=== PATIENT | female | born 1950 | race Caucasian/White ===

== ENCOUNTER 2020-07-31 01:07 | Observation (INO) | payer OTHER, BC ==
--- OUTSIDE RECORDS SUMMARY | 2020-07-31 01:09 | XMS REPORT | Continuity of Care Document ---
:1950 Author Organization [facility] t Address [address] [place] [address] Dr. Dickens [address] [place] [id number] Care Team Providers Name Role Phone Leon FELDMAN Attending Clinician Problems This patient has no known problems. Allergies, Adverse Reactions, Alerts This patient has no known allergies or adverse reactions. Medications This patient has no known medications. Procedures This patient has no known procedures. Encounters Start End Encounter Admission Attending Care Care Encounter Source Date/Time Date/Time Type Type Clinicians Facility Department ID 2020-06-18 2020-06-18 Office Christa Quintero [id number] 11:59:05 12:14:05 Visit AMBULATOR [id number] Y [id number] 2019-05-19 2019-05-19 Office Christa Quintero [id number] 12:34:17 12:58:50 Visit AMBULATOR [id number] Y [id number] Results This patient has no known results.
[2020-07-31] MEDS ORDERED: FAMOTIDINE 20 MG/2 ML VIAL IV ONE (02:01)
[2020-07-31] MEDS ORDERED: NA CHLORIDE 0.9% 1,000 ML ONE (02:01)
[2020-07-31] MEDS ORDERED: ONDANSETRON 4 MG/2 ML VIAL ONE ×2 (02:01→03:30)
[2020-07-31] MEDS ORDERED: MECLIZINE HCL 12.5 MG TAB ONE (02:31)
[2020-07-31 02:41] LABS: ALT/SGPT 20 U/L (12-78); AST/SGOT 12 U/L (15-37); Albumin 3.8 g/dL (3.4-5.0); Alkaline Phosphatase 56 U/L (45-117); BUN Blood Urea Nitrogen 11 mg/dL (7-18); Bicarbonate 27 mmol/L (21-32); Bilirubin Direct < 0.1 mg/dL (0-0.2); Bilirubin Total 0.2 mg/dL (0.2-1.0); Glucose Level 138 mg/dL (74-106); Lipase 134 U/L (73-393); NT PRO-BNP 69 pg/mL (<125); Potassium 3.5 mmol/L (3.5-5.1); Protein, Total 7.1 g/dL (6.4-8.2); Sodium Level 141 mmol/L (136-145); Troponin (Emerg Dept Use Only) < 0.02 ng/mL (0.0-0.045)
[2020-07-31 02:45] LABS: Absolute Lymphocytes (CBC) 2.9 K/uL (0.7-4.9); Basophils % 0.7 % (0-1.3); Hematocrit 37.2 % (36.0-45.0); Lymphocytes % 27.5 % (15.3-44.8); MPV 7.7 fL (7.6-11.3); RBC Red Blood Cell Count 4.12 M/uL (3.86-4.86)
[2020-07-31 02:46] LABS: Protime INR 0.97
--- NOTE | 2020-07-31 03:14 | EDPHYS ---
Physician Documentation [facility] Name: Geno Chaparro Age: 69 yrs Sex: Female : 1950 Arrival Date: 07/31/2020 Time: : Bed 5 Private MD: ED Physician Jamie Koehler HPI: 07/31 02:04 This 69 yrs old Female presents to ER via Ambulatory with complaints of sukhwinder Nausea. 02:04 The patient presents to the emergency department with nausea, vomiting, that is sukhwinder intermittent. Onset: The symptoms/episode began/occurred just prior to arrival. Possible causes: unknown. The symptoms are aggravated by nothing. The symptoms are alleviated by nothing. remaining still. Associated signs and symptoms: Pertinent positives: nausea, vomiting. Severity of symptoms: At their worst the symptoms were mild in the emergency department the symptoms have improved mildly. The patient has not experienced similar symptoms in the past. Historical: - Allergies: 01:36 PENICILLINS; rr5 01:36 Sulfa (Sulfonamide Antibiotics); rr5 - Home Meds: 01:36 None [Active]; rr5 - PMHx: 01:36 None; rr5 - PSHx: 01:36 Knee surgery; rr5 - Immunization history:: Adult Immunizations up to date, Client reports receiving the 2nd dose of the Covid vaccine, Date received: May 17, 2020. - Social history:: Smoking status: unknown Patient uses alcohol, occasionally. ROS: 02:05 Constitutional: Negative for fever, chills, and weight loss, Eyes: Negative for injury, sukhwinder pain, redness, and discharge, ENT: Negative for injury, pain, and discharge, Neck: Negative for injury, pain, and swelling, Cardiovascular: Negative for chest pain, palpitations, and edema, Respiratory: Negative for shortness of breath, cough, wheezing, and pleuritic chest pain, Back: Negative for injury and pain, : Negative for injury, bleeding, discharge, and swelling, MS/Extremity: Negative for injury and deformity, Skin: Negative for injury, rash, and discoloration, Neuro: Negative for headache, weakness, numbness, tingling, and seizure, Psych: Negative for depression, anxiety, suicide ideation, homicidal ideation, and hallucinations, Allergy/Immunology: Negative for hives, rash, and allergies, Endocrine: Negative for neck swelling, polydipsia, polyuria, polyphagia, and marked weight changes, Hematologic/Lymphatic: Negative for swollen nodes, abnormal bleeding, and unusual bruising. 02:05 Abdomen/GI: Positive for nausea and vomiting. 02:05 Neuro: Positive for dizziness. Exam: 02:05 Constitutional: This is a well developed, well nourished patient who is awake, alert, sukhwinder and in no acute distress. Head/Face: Normocephalic, atraumatic. Eyes: Pupils equal round and reactive to light, extra-ocular motions intact. Lids and lashes normal. Conjunctiva and sclera are non-icteric and not injected. Cornea within normal limits. Periorbital areas with no swelling, redness, or edema. ENT: Nares patent. No nasal discharge, no septal abnormalities noted. Tympanic membranes are normal and external auditory canals are clear. Oropharynx with no redness, swelling, or masses, exudates, or evidence of obstruction, uvula midline. Mucous membranes moist. Neck: Trachea midline, no thyromegaly or masses palpated, and no cervical lymphadenopathy. Supple, full range of motion without nuchal rigidity, or vertebral point tenderness. No Meningismus. Chest/axilla: Normal chest wall appearance and motion. Nontender with no deformity. No lesions are appreciated. Cardiovascular: Regular rate and rhythm with a normal S1 and S2. No gallops, murmurs, or rubs. Normal PMI, no JVD. No pulse deficits. Respiratory: Lungs have equal breath sounds bilaterally, clear to auscultation and percussion. No rales, rhonchi or wheezes noted. No increased work of breathing, no retractions or nasal flaring. Abdomen/GI: Soft, non-tender, with normal bowel sounds. No distension or tympany. No guarding or rebound. No evidence of tenderness throughout. Back: No spinal tenderness. No costovertebral tenderness. Full range of motion. Female : Normal external genitalia. Skin: Warm, dry with normal turgor. Normal color with no rashes, no lesions, and no evidence of cellulitis. MS/ Extremity: Pulses equal, no cyanosis. Neurovascular intact. Full, normal range of motion. Neuro: Awake and alert, GCS 15, oriented to person, place, time, and situation. Cranial nerves II-XII grossly intact. Motor strength 5/5 in all extremities. Sensory grossly intact. Cerebellar exam normal. Normal gait. Psych: Awake, alert, with orientation to person, place and time. Behavior, mood, and affect are within normal limits. 02:42 ECG was reviewed by the Attending Physician. sukhwinder 03:05 Neck: ROM/movement: is normal, no acute changes, limited range of motion, is not sukhwinder appreciated, Meningeal signs: are not present, Kernig's sign is negative, Brudzinski's sign is negative, Lymph nodes: no appreciated lymphadenopathy. 03:05 Cardiovascular: Rate: normal, Rhythm: regular, Pulses: Pulses are 4+ in bilateral radial, brachial, femoral, popliteal, posterior tibial and and dorsalis pedis arteries.. Heart sounds: normal, Edema: is not appreciated, JVD: is not appreciated. Vital Signs: 01:30 BP 141 / 88; Pulse 75; Resp 16; Temp 97.7; Pulse Ox 99% ; Weight 77.11 kg; Height 5 ft. rr5 5 in. (165.10 cm); Pain 0/10; 03:00 BP 131 / 85; Pulse 77; Resp 16; Pulse Ox 99% ; rr5 04:00 BP 126 / 89; Pulse 70; Resp 17; Pulse Ox 99% ; rr5 04:43 BP 133 / 66; Pulse 79; Resp 19; Pulse Ox 98% ; rr5 05:42 BP 124 / 68; Pulse 77; Resp 17; Temp 97.7; Pulse Ox 94% ; rr5 01:30 Body Mass Index 28.29 (77.11 kg, 165.10 cm) rr5 MDM: 01:33 Patient medically screened. [facility] 02:06 Differential diagnosis: viral gastroenteritis, gastroenteritis. Data reviewed: vital sukhwinder signs, nurses notes, lab test result(s), EKG, radiologic studies, CT scan, plain films. Data interpreted: hospital monitor: rate is 75 beats/min, rhythm is regular. Test interpretation: by ED physician or midlevel provider: ECG, plain radiologic studies. Counseling: I had a detailed discussion with the patient and/or guardian regarding: the historical points, exam findings, and any diagnostic results supporting the discharge/admit diagnosis, lab results. 07/31 01:35 Order name: Basic Metabolic Panel [facility] 07/31 01:35 Order name: CBC with Diff [facility] 07/31 01:35 Order name: LFT's; Complete Time: 03:04 [facility] 07/31 01:35 Order name: Magnesium; Complete Time: 03:04 [facility] 07/31 01:35 Order name: NT PRO-BNP; Complete Time: 03:04 [facility] 07/31 01:35 Order name: PT-INR; Complete Time: 03:04 [facility] 07/31 01:35 Order name: Troponin (emerg Dept Use Only); Complete Time: 03:04 [facility] 07/31 01:35 Order name: Lipase; Complete Time: 03:04 [facility] 07/31 01:35 Order name: Urine Culture [facility] 07/31 01:36 Order name: Basic Metabolic Panel; Complete Time: 02:44 [facility] 07/31 01:36 Order name: CBC with Automated Diff; Complete Time: 03:04 [facility] 07/31 04:35 Order name: Urine Dipstick-Ancillary [facility] 07/31 04:38 Order name: Urine Microscopic Only ds4 07/31 01:35 Order name: XRAY Chest (1 view) [facility] 07/31 01:35 Order name: EKG; Complete Time: 01:36 [facility] 07/31 01:35 Order name: Cardiac monitoring; Complete Time: 02:18 [facility] 07/31 01:35 Order name: EKG - Nurse/Tech; Complete Time: 02:35 [facility] 07/31 01:35 Order name: IV Saline Lock; Complete Time: 02:19 [facility] 07/31 01:35 Order name: Labs collected and sent; Complete Time: 02:19 [facility] 07/31 01:35 Order name: O2 Per Protocol; Complete Time: 02:19 [facility] 07/31 02:03 Order name: CT Head Brain wo Cont [facility] 07/31 05:19 Order name: SARS-COV-2 RT PCR [facility] 07/31 01:35 Order name: O2 Sat Monitoring; Complete Time: 02:19 [facility] 07/31 01:35 Order name: Urine Dipstick-Ancillary (obtain specimen); Complete Time: 04:43 [facility] EC:42 Rate is 63 beats/min. Rhythm is regular. QRS [place] is Normal. CO interval is normal. QRS sukhwinder interval is normal. QT interval is prolonged at 464 msec. No Q waves. T waves are Normal. No ST changes noted. Clinical impression: NSR w/ Non-specific ST/T Changes and No evidence of ischemia. Interpreted by me. Reviewed by me. Administered Medications: 02:15 Drug: NS 0.9% 500 ml Route: IV; Rate: bolus; Site: right antecubital; rr5 03:33 Follow up: Response: No adverse reaction; IV Status: Completed infusion; IV Intake: rr5 500ml 02:15 Drug: Zofran (Ondansetron) 4 mg Route: IVP; Site: right antecubital; rr5 03:00 Follow up: Response: No adverse reaction rr5 02:17 Drug: Meclizine 25 mg Route: PO; rr5 03:15 Follow up: Response: No adverse reaction rr5 02:18 Drug: Pepcid (famotidine) 20 mg Route: IVP; Site: right antecubital; rr5 03:05 Follow up: Response: No adverse reaction rr5 03:00 Drug: NS 0.9% 1000 ml Route: IV; Rate: 125 ml/hr; Site: right antecubital; rr5 04:39 Follow up: Response: No adverse reaction; IV Status: Infusion continued upon admission; rr5 IV Intake: 250ml 03:24 Drug: Zofran (Ondansetron) 4 mg Route: IVP; Site: right antecubital; rr5 04:39 Follow up: Response: No adverse reaction rr5 04:39 Drug: Aspirin 162 mg Route: PO; rr5 05:18 Follow up: Response: No adverse reaction rr5 Disposition: 07/31/20 03:13 Hospitalization ordered by Jason Carey for Observation. Preliminary diagnosis are Nausea and vomiting, Vertiginous syndromes in diseases classified elsewhere, unspecified ear, Dizziness and giddiness. - Bed requested for Telemetry/MedSurg (observation). - Status is Observation. rr5 - Condition is Stable. - Problem is new. - Symptoms have improved. Signatures: Dispatcher [employer] EDMS Rand Rodriguez RN RN mw Anderson, Corey, MD MD cha Attema, Lee, CHARGING CRANE OPERATOR-C CHARGING CRANE OPERATOR-Cla1 Anthony Witt, GRZEGORZ RN rr5 Corrections: (The following items were deleted from the chart) 03:52 03:28 CORONAVIRUS+MR.LAB.BRZ ordered. EDWV EDMS 05:21 03:13 Hospitalization Ordered by Jason Carey MD for Observation. Preliminary diagnosis mw is Nausea and vomiting; Vertiginous syndromes in diseases classified elsewhere, unspecified ear; Dizziness and giddiness. Bed requested for Telemetry/MedSurg (observation). Status is Observation. Condition is Stable. Problem is new. Symptoms have improved. [facility] 05:46 05:21 07/31/2020 03:13 Hospitalization Ordered by Jason Carey MD for Observation. mw Preliminary diagnosis is Nausea and vomiting; Vertiginous syndromes in diseases classified elsewhere, unspecified ear; Dizziness and giddiness. Bed requested for Telemetry/MedSurg (observation). Status is Observation. Condition is Stable. Problem is new. Symptoms have improved. 06:30 05:46 07/31/2020 03:13 Hospitalization Ordered by Jason Carey MD for Observation. rr5 Preliminary diagnosis is Nausea and vomiting; Vertiginous syndromes in diseases classified elsewhere, unspecified ear; Dizziness and giddiness. Bed requested for Telemetry/MedSurg (observation). Status is Observation. Condition is Stable. Problem is new. Symptoms have improved.
--- NOTE | 2020-07-31 03:14 | ER ---
Nurse's Notes [facility] Name: Geno Chaparro Age: 69 yrs Sex: Female : 1950 Arrival Date: 07/31/2020 Time: :11 Bed 5 Private MD: Diagnosis: Nausea and vomiting;Vertiginous syndromes in diseases classified elsewhere, unspecified ear;Dizziness and giddiness Presentation: 07/31 01:30 Chief complaint: Patient states: around 1130 PM I started not to feel good, nauseous, rr5 vomits, feels dizzy and clammy. denies chest pain, abdominal pain or fever. 01:30 Coronavirus screen: Client denies travel out of the [place] in the last 14 days. At this rr5 time, the client does not indicate any symptoms associated with coronavirus-19. Ebola Screen: Patient negative for fever greater than or equal to 101.5 degrees Fahrenheit, and additional compatible Ebola Virus Disease symptoms Patient denies exposure to infectious person. Patient denies travel to an Ebola-affected area in the 21 days before illness onset. Initial Sepsis Screen: Does the patient meet any 2 criteria? No. Patient's initial sepsis screen is negative. Does the patient have a suspected source of infection? No. Patient's initial sepsis screen is negative. Risk Assessment: Do you want to hurt yourself or someone else? Patient reports no desire to harm self or others. Onset of symptoms was July 30, 2020 at 23:30. 01:30 Method Of Arrival: Ambulatory rr5 01:30 Acuity: NAINA 3 rr5 Historical: - Allergies: 01:36 PENICILLINS; rr5 01:36 Sulfa (Sulfonamide Antibiotics); rr5 - Home Meds: 01:36 None [Active]; rr5 - PMHx: 01:36 None; rr5 - PSHx: 01:36 Knee surgery; rr5 - Immunization history:: Adult Immunizations up to date, Client reports receiving the 2nd dose of the Covid vaccine, Date received: May 17, 2020. - Social history:: Smoking status: unknown Patient uses alcohol, occasionally. Screenin:19 Abuse screen: Denies threats or abuse. Denies injuries from another. Nutritional rr5 screening: No deficits noted. Tuberculosis screening: No symptoms or risk factors identified. Fall Risk IV access (20 points). Total Reich Fall Scale indicates No Risk (0-24 pts). Assessment: 01:37 General: Appears in no apparent distress. uncomfortable, Behavior is calm, cooperative, rr5 appropriate for age. Pain: Denies pain. Neuro: Level of Consciousness is awake, alert, obeys commands, Oriented to person, place, time, Reports dizziness. Cardiovascular: Capillary refill < 3 seconds Patient's skin is warm and dry. Respiratory: Airway is patent Respiratory effort is even, unlabored, Respiratory pattern is regular, symmetrical. GI: Abdomen is round Abd is soft and non tender Reports nausea, vomiting. : No signs and/or symptoms were reported regarding the genitourinary system. EENT: No signs and/or symptoms were reported regarding the EENT system. Derm: Skin temperature is warm. Musculoskeletal: No signs and/or symptoms reported regarding the musculoskeletal system. 02:30 Reassessment: Patient appears in no apparent distress at this time. Patient and/or rr5 family updated on plan of care and expected duration. Pain level reassessed. Patient is alert, oriented x 3, equal unlabored respirations, skin warm/dry/pink. 03:41 Reassessment: Patient appears in no apparent distress at this time. Patient is alert, rr5 oriented x 3, equal unlabored respirations, skin warm/dry/pink. Patient states symptoms have improved. 04:44 Reassessment: Patient appears in no apparent distress at this time. Patient is alert, rr5 oriented x 3, equal unlabored respirations, skin warm/dry/pink. awaiting for Covid result, patient for admission Patient states symptoms have improved. Vital Signs: 01:30 BP 141 / 88; Pulse 75; Resp 16; Temp 97.7; Pulse Ox 99% ; Weight 77.11 kg; Height 5 ft. rr5 5 in. (165.10 cm); Pain 0/10; 03:00 BP 131 / 85; Pulse 77; Resp 16; Pulse Ox 99% ; rr5 04:00 BP 126 / 89; Pulse 70; Resp 17; Pulse Ox 99% ; rr5 04:43 BP 133 / 66; Pulse 79; Resp 19; Pulse Ox 98% ; rr5 05:42 BP 124 / 68; Pulse 77; Resp 17; Temp 97.7; Pulse Ox 94% ; rr5 01:30 Body Mass Index 28.29 (77.11 kg, 165.10 cm) rr5 ED Course: 01:11 Patient arrived in ED. ag3 01:25 Anthony Witt, GRZEGORZ is Primary Nurse. rr5 01:33 Jamie Koehler MD is Attending Physician. sukhwinder 01:36 Triage completed. rr5 01:37 Arm band placed on right wrist. rr5 01:52 XRAY Chest (1 view) In Process Unspecified. EDMS 02:10 Inserted saline lock: 20 gauge in right antecubital area, using aseptic technique. rr5 ,using aseptic technique. inserted by [id number] Blood collected. 02:19 Patient has correct armband on for positive identification. Bed in low position. Call rr5 light in reach. alarm security or surveillance monitor on. Pulse ox on. NIBP on. 02:29 CT Head Brain wo Cont In Process Unspecified. EDMS 03:12 Jason Carey MD is Hospitalizing Provider. sukhwinder 05:43 No provider procedures requiring assistance completed. Patient admitted, IV remains in rr5 place. intact, No redness/swelling at site. Administered Medications: 02:15 Drug: NS 0.9% 500 ml Route: IV; Rate: bolus; Site: right antecubital; rr5 03:33 Follow up: Response: No adverse reaction; IV Status: Completed infusion; IV Intake: rr5 500ml 02:15 Drug: Zofran (Ondansetron) 4 mg Route: IVP; Site: right antecubital; rr5 03:00 Follow up: Response: No adverse reaction rr5 02:17 Drug: Meclizine 25 mg Route: PO; rr5 03:15 Follow up: Response: No adverse reaction rr5 02:18 Drug: Pepcid (famotidine) 20 mg Route: IVP; Site: right antecubital; rr5 03:05 Follow up: Response: No adverse reaction rr5 03:00 Drug: NS 0.9% 1000 ml Route: IV; Rate: 125 ml/hr; Site: right antecubital; rr5 04:39 Follow up: Response: No adverse reaction; IV Status: Infusion continued upon admission; rr5 IV Intake: 250ml 03:24 Drug: Zofran (Ondansetron) 4 mg Route: IVP; Site: right antecubital; rr5 04:39 Follow up: Response: No adverse reaction rr5 04:39 Drug: Aspirin 162 mg Route: PO; rr5 05:18 Follow up: Response: No adverse reaction rr5 Intake: 03:33 IV: 500ml; Total: 500ml. rr5 04:39 IV: 250ml; Total: 750ml. rr5 Outcome: 03:13 Decision to Hospitalize by Provider. sukhwinder 05:43 Admitted to Med/surg accompanied by nurse, via stretcher, room 213. rr5 05:43 Condition: stable 05:43 Instructed on the need for admit. 06:30 Patient left the ED. rr5 Signatures: Dispatcher [employer] EDJamie Quiñonez MD MD cha Gomez, Alice ag3 Roque, Raymond, RN RN rr5
[2020-07-31 04:35] LABS: Urine Blood Trace-intact (Negative); Urine Glucose Negative (Negative); Urine Protein Negative (Negative); Urine pH 7.5 (5.0-7.0)
[2020-07-31] MEDS ORDERED: ASPIRIN 81 MG CHEWABLE TABLET ONE (04:42)
[2020-07-31 06:44] VITALS: O2SAT 94
[2020-07-31 06:47] VITALS: BMI 29.4
[2020-07-31] MEDS ORDERED: ACETAMINOPHEN 325 MG TABLET PO PRN (06:47)
[2020-07-31] MEDS ORDERED: ONDANSETRON 4 MG/2 ML VIAL IV PRN (06:47)
[2020-07-31] MEDS ORDERED: MECLIZINE HCL 12.5 MG TAB PO PRN (06:47)
--- NOTE | 2020-07-31 07:43 | RAD REPORT ---
EXAM DESCRIPTION: Alice Single View07/31/2020 1:52 am CLINICAL HISTORY: Cough COMPARISON: none FINDINGS: The lungs appear clear of acute infiltrate. The heart is normal size IMPRESSION: No acute abnormalities displayed
[2020-07-31] MEDS ORDERED: ASPIRIN EC 81 MG TAB PO SCH (09:00)
[2020-07-31] MEDS ORDERED: FAMOTIDINE 20 MG/2 ML VIAL IV SCH (09:00)
--- NOTE | 2020-07-31 09:42 | RAD REPORT ---
EXAM DESCRIPTION: USCarotid Artery Bilateral07/31/2020 9:21 am CLINICAL HISTORY: Dizziness COMPARISON: None FINDINGS: The velocity of the right internal carotid artery equals 114 cm/sec. The right ICA/CCA rat io 1.4 The velocity of the left internal carotid artery equals 95 cm/sec. The left ICA/CCA ratio 0.9. Minimal plaque is present within the carotid arteries. The vertebral arteries demonstrate antegrade flow IMPRESSION: Minimal plaque within the carotid arteries without evidence of a hemodynamically signifi cant stenosis NASCET criteria used. Mild 0-49% stenosis Moderate 50-69% stenosis Severe 70-99% stenosis
--- NOTE | 2020-07-31 14:19 | RAD REPORT ---
EXAM DESCRIPTION: CT - Head Brain Wo Cont - 07/31/2020 6:26 am CLINICAL HISTORY: 69 years, Female, DIZZINESS COMPARISON: 05/12/2018 FINDINGS: Multiple transaxial tomograms of the brain were obtained from the base of the skull to the vertex without contrast. 2-D multiplanar reformats and the coronal and sagittal plane were performed and reviewed. This exam was performed according to our departmental dose-optimization protocol, which includes auto mated exposure control, adjustment of the mA and/or kV according to patient size and/or use of iterat carroll reconstruction technique. Brain parenchyma as well as the tse and white matter differentiation demonstrate to be unremarkable. There is mild prominence of the sulci and gyri suggesting mild brain atrophy which is appropriate fo r patient's age. There is no midline shift and/or mass effect. There is no evidence for acute hemorrh age. Lateral ventricles and cisterns displace normal appearance. No intra or extra axial fluid co llections were seen. The calvarium is intact with no evidence for fracture. The visualized portions o f the paranasal sinuses and orbits demonstrate to be clear. IMPRESSION: No evidence for acute hemorrhage. Mild brain atrophy which is appropriate for patient's age. Electronically signed by: Renzo Stewart MD 07/31/2020 2:39 AM CDT Due to temporary technical issues with the PACS/Fluency reporting system, reports are being signed by the in house radiologists without review as a courtesy to insure prompt reporting. The interpreting radiologist is fully responsible for the content of the report.
[2020-07-31 16:40] VITALS: BP 117/59; TEMP 98.9
--- NOTE | 2020-07-31 17:42 | EKG ---
Test Date: 2020-07-31 Test Time: 02:28:23 Secretarial Teacher: RR MEASUREMENT RESULTS: Intervals: Rate: 63 KS: 154 QRSD: 92 QT: 464 QTc: 474 Morris: P: 39 KS: 154 QRS: -10 T: 35 INTERPRETIVE STATEMENTS: Normal sinus rhythm Prolonged QT Abnormal ECG Compared to ECG 03/05/1994 11:56:00 Prolonged QT interval now present Electronically Signed On 07-31-20 17:40:10 CDT by Farzad Espinoza
--- NOTE | 2020-08-01 08:20 | ECHO ---
HEIGHT: 5 ft 5 in WEIGHT: 177 lb 0 oz DATE OF STUDY: 07/31/[address]: Jamie Koehler MD 2-DIMENSIONAL: YES M.MODE: YES DOPPLER: YES COLOR FLOW: YES TDS: NO PORTABLE: NO DEFINITY: NO BUBBLE STUDY: NO DIAGNOSIS: CHEST PAIN CARDIAC HISTORY: CATHERIZATION: NO SURGERY: NO PROSTHETIC VALVE: NO PACEMAKER: NO MEASUREMENTS (cm) DIASTOLIC (NORMALS) SYSTOLIC (NORMALS) IVSd 1.2 (0.6-1.2) LA Diam 2.5 (1.9-4.0) LVEF 58% LVIDd 3.3 (3.5-5.7) LVIDs 2.3 (2.0-3.5) %FS 29% LVPWd 1.2 (0.6-1.2) Ao Diam 2.6 (2.0-3.7) 2 DIMENSIONAL ASSESSMENT: RIGHT ATRIUM: NORMAL LEFT ATRIUM: NORMAL RIGHT VENTRICLE: NORMAL LEFT VENTRICLE: NORMAL TRICUSPID VALVE: NORMAL MITRAL VALVE: NORMAL PULMONIC VALVE: NORMAL AORTIC VALVE: NORMAL PERICARDIAL EFFUSION: NONE AORTIC ROOT: NORMAL LEFT VENTRICULAR WALL MOTION: NORMAL DOPPLER/COLOR FLOW: NORMAL COMMENTS: NORMAL 2D ECHOCARDIOGRAM WITH DOPPLER. NO WALL MOTION ABNORMALTY. NO EFFUSION. TECHNOLOGIST: Yaya LUIS
--- NOTE | 2020-08-01 23:59 | SS ---
Date of Admission: 08/01/2020 Date of Discharge: 08/01/2020 Chief Complaint: Dizziness. History Of Present Illness: This is a 69-year-old female patient, who started to have dizziness symptom last night and came into emergency room. The patient describes her dizziness as a spinning sensation in forward direction. Every time she moves her head or tries to get out of bed or change position, she has this dizziness feeling. She did have some nausea, vomiting associated with this. No fall or any head injury. No fever, chills, and no other complaints. After she came into emergency room, she was evaluated and admitted to the hospital. When I saw her, she was in the emergency room. Medications: List reviewed. Allergies: HYDROCODONE CAUSING NAUSEA, VOMITING; PENICILLIN CAUSING LIP SWELLING; SULFA CAUSING RASH. Review of Systems: POLICE CHIEF: As mentioned above. GI: As mentioned above. All other systems reviewed and negative. Past Medical History: Impaired fasting glucose; hyperlipidemia, which is mixed; gastroesophageal reflux disease; and thrombocytopenia. Past Surgical History: Bilateral knee surgery, basal cell carcinoma removal. Family History: Father , had rheumatoid arthritis. Mother , had congestive heart failure. Brother alive and well. Social History: Prior history of smoking, not at present time. Use of alcohol socially. Physical Examination: Vital Signs: Temperature 97.6, pulse 73, respiratory rate 17, blood pressure 140/63, oxygen saturation 97%. Height 5 feet 5 inches, weight 177 pounds. General: Awake, alert, oriented, not in distress. HEENT: Head atraumatic, normocephalic. Conjunctivae nonerythematous. Sclerae white. Mouth, no thrush or edema noted. Ears/Nose, no mass, lesion, discharge noted. Neck: Supple. No JVD, lymph nodes, bruit, thyromegaly noted. Lungs: Bilateral good equal air entry. Clear to auscultation. No rhonchi. No rales. Heart: Normal heart sounds. No murmur or gallop. Abdomen: Soft. Bowel sounds normal. No guarding, rigidity, tenderness, mass, hepatosplenomegaly, distention, or bruit noted. Extremities: No leg edema. No calf tenderness. Skin: No rash, ulcer, cellulitis. Lymphatics: No lymph node enlargement in neck, supraclavicular, infraclavicular region. Neuro: No focal neurological deficit. Chest: Unremarkable. External Genitalia: Deferred. Rectal: Deferred. Laboratory Data: White count 10.7, hemoglobin 12.9, platelets 414. Sodium 141, potassium 3.5, chloride 106, bicarb 27, BUN 11, creatinine 0.76, glucose 138. Liver function tests unremarkable. Troponin less than 0.02. Lipase 134. Urinalysis showed 2+ leukocyte esterase, otherwise negative. COVID-19 test negative. CAT scan of the head negative for any acute intracranial changes. Carotid Doppler shows minimal plaquing, but no evidence of any hemodynamically significant stenotic lesion. Echocardiogram done, result pending. Hospital Course: After the patient was evaluated in emergency room, she was given 1 dose of meclizine. She was admitted to the hospital for observation. Overall, her condition improved. Her dizziness symptom improved over a period of day and she started ambulating, was able to get in and out of bed, go to the bathroom on her home without any difficulty, and she was feeling much better and informed nursing staff that she was comfortable and ready to go home. The patient was discharged to go home in stable condition. Final Diagnoses: 1. Benign paroxysmal vertigo. 2. Impaired fasting glucose. 3. Mixed hyperlipidemia. 4. Gastroesophageal reflux disease. Discharge Medications And Instructions: 1. Continue all prior home medications. 2. Take meclizine 25 mg 4 times a day as needed for dizziness and the patient was instructed not to drive car while having dizziness or after taking meclizine. 3. Follow up at my office next week on Thursday, which is 08/07/2020. LORRI/JAYANT Voice ID: [id number] Report ID: [id number]
== END 2020-07-31 18:29 | disposition home or self-care (01) ==
LOC: ER 01:07 → ERHOLD 03:58 → 2ND 05:43
PROVIDERS: ADMIT Internal Medicine; ATTEND Internal Medicine
DX: H81.10 Benign paroxysmal vertigo, unspecified ear (principal); E78.2 Mixed hyperlipidemia; R73.01 Impaired fasting glucose; K21.9 Gastro-esophageal reflux disease without esophagitis; D69.6 Thrombocytopenia, unspecified; Z87.891 Personal history of nicotine dependence; Z20.822 Contact with and (suspected) exposure to COVID-19; R94.31 Abnormal electrocardiogram [ECG] [EKG]; Z85.828 Personal history of other malignant neoplasm of skin
CPT/HCPCS: 93005; 93306; 87088; 85025; 87086; 80048; 36415; 83735; 85610; 80076; 81003; 84484 ×3; 83690; 83880; 70450; 71045; 93880; U0003; J7030; J2405 ×2; 96361; 96374; 96375; 99285; G0378